=== PATIENT | male | born 1980 | race Caucasian/White ===

== ENCOUNTER 2020-12-13 05:50 | Emergency (ER) | payer OTHER ==
[~2020-12-13] VITALS: Ht 172.7 cm; Wt 68.0 kg
[~2020-12-13 05:50] MED LIST: HYDROCODONE-AP1 EAC6 PO; PENICILLIN VK500 MG PO
[2020-12-13 07:39] LABS: BASOPHILS 0.9 % (0.0-2.0); EOSINOPHILS 0.8 % (0.0-3.0); HEMATOCRIT 46.6 % (42.0-52.0); HEMOGLOBIN 15.9 gm/dL (14.0-18.0); MCH 30.5 pg (26.0-34.0); MCHC 34.3 g/dL (28.0-37.0); MCV 89.1 fL (80.0-100.0); MONOCYTES 8.9 % (1.0-8.0); POLYS 80.4 % (36.0-66.0); RBC 5.23 mil/uL (4.50-6.00); RDW 13.3 % (10.5-14.5); WBC 12.4 thou/uL (4.0-11.0)
[2020-12-13 07:50] LABS: ANION GAP 10 mmol/L (7-16); BUN 14 mg/dL (7-18); CALCIUM 8.5 mg/dL (8.5-10.1); CHLORIDE 105 mmol/L (98-107); CO2 26 mmol/L (21-32); CREATININE 1.4 mg/dL (0.7-1.3); GLUCOSE 149 mg/dL (74-106); POTASSIUM 3.8 mmol/L (3.5-5.1); SODIUM 141 mmol/L (136-145)
[2020-12-13 07:56] LABS: ALBUMIN 3.6 g/dL (3.4-5.0); MAGNESIUM 1.9 mg/dL (1.8-2.4); SGOT 27 U/L (15-37); SGPT 31 U/L (30-65); TOTAL BILIRUBIN 0.5 mg/dL (0.2-1.0); TOTAL PROTEIN 7.4 g/dL (6.4-8.2)
[2020-12-13 08:13] LABS: SALICYLATE 2.9 mg/dL (2.8-20.0)
[2020-12-13 09:29] LABS: URINE BILIRUBIN NEGATIVE (Negative); URINE BLOOD NEGATIVE (Negative); URINE CLARITY CLEAR; URINE COLOR YELLOW; URINE GLUCOSE-RANDOM* NEGATIVE (Negative); URINE KETONES 1+ (Negative); URINE LEUKOCYTES-REFLEX NEGATIVE (Negative); URINE NITRITE-REFLEX NEGATIVE (Negative); URINE PROTEIN (DIPSTICK) TRACE (Negative); URINE SPECIFIC GRAVITY 1.025 (1.005-1.035)
[2020-12-13 09:36] LABS: AMP/METHAMP POSITIVE (Negative); BARBITURATES Negative (Negative); BENZODIAZEPINES Negative (Negative); COCAINE Negative (Negative); METHADONE Negative (Negative); OPIATES Negative (Negative); PCP Negative (Negative)
[2020-12-13 09:58] LABS: PLATELET COUNT 203 thou/uL (150-400)
[2020-12-13 14:00] VITALS: BP 141/106
--- NOTE | 2020-12-14 08:22 | EKG ---
[place] [address] [facility] [place] [address] ELECTROCARDIOGRAM REPORT Name: PAVAN HUDSONNE Room #: DEP Yuniel#: [id number] Admission: 12/13/20 Attend Phys: Discharge: 12/13/20 Date of : 76 Report #: [id number] [facility] ED Test Date: 2020-12-13 Test Time: 08:44:32 Pat Name: AMMON HUDSON Department: Room: Gender: [employer] Apparel Salesperson: Nahum FELIX : 1980 Requested By: Zoltan Dawkins Order Number: [id number] MD: Jose Pathak Measurements Intervals [place] Rate: 99 P: 37 IN: 124 QRS: 2 QRSD: 95 T: 18 QT: 352 QTc: 452 Interpretive Statements Sinus rhythm Abnormal R-wave progression, early transition No previous ECG available for comparison Electronically Signed On 12-14-2020 7:00:39 CDT by Jose Pathak [email or web address] <ELECTRONICALLY SIGNED> By: Jose Pathak MD, [facility] 12/14/20 0700 [id number] [id number] Jose Pathak MD, FACC /EPI
== END 2020-12-13 14:00 | disposition home or self-care (01) ==
LOC: ER 05:50
PROVIDERS: Emergency Medicine
DX: F15.10 Other stimulant abuse, uncomplicated (principal)